=== PATIENT | female | born 1945 | race Caucasian/White ===

== ENCOUNTER 2021-02-24 17:49 | Emergency (ER) | payer MEDICARE, OTHER ==
[2021-02-24] MEDS ORDERED: ONDANSETRON ODT4 MG PO (21:16)
== END 2021-02-24 21:20 | disposition home or self-care (01) ==
LOC: FER 17:49
DX: S01.21XA Laceration without foreign body of nose, initial encounter (principal); W10.9XXA Fall (on) (from) unspecified stairs and steps, initial encounter
CPT/HCPCS: 70450; 70486; 72125